=== PATIENT | male | born 1975 | race Two or more races ===

== ENCOUNTER 2018-12-05 12:08 | Emergency (ER) | payer OTHER ==
[~2018-12-05] VITALS: Ht 170.2 cm; Wt 81.6 kg
[2018-12-05 12:28] VITALS: BP 155/90
[2018-12-05] MEDS ORDERED: TETANUS-DIPTH-ACEL PERTUSSIS 0.5ML SYRG IM ONE (13:30)
== END 2018-12-05 13:55 | disposition home or self-care (01) ==
LOC: ER 12:08
DX: S01.03XA Puncture wound without foreign body of scalp, initial encounter (principal); W20.8XXA Other cause of strike by thrown, projected or falling object, initial encounter; Y93.89 Activity, other specified; Y99.0 Civilian activity done for income or pay; Y92.89 Other specified places as the place of occurrence of the external cause
CPT/HCPCS: 70450; 90471; 90715